=== PATIENT | male | born 1955 | race Caucasian/White ===

== ENCOUNTER 2021-08-08 16:04 | Observation (INO) ==
[2021-08-08] MEDS ORDERED: Naloxone 0.4 MG/ML INJ IVP PRN (18:10)
[2021-08-08] MEDS ORDERED: Furosemide 40 MG/4 ML VIAL IVP ONE (18:10)
[2021-08-08 18:35] LABS: Hemoglobin 7.9 g/dL (12.9-16.9)
[2021-08-08] MEDS ORDERED: 0.9 % Sodium Chloride 250 ML ONE (19:27)
[2021-08-09] MEDS: Morphine Sulfate ER (12 HR) 30 MG TABLET.ER PO PRN ×2 (01:49→10:10)
[2021-08-09 05:53] LABS: Hematocrit 27.6 % (37.5-50.1); Hemoglobin 8.3 g/dL (12.9-16.9)
[2021-08-09 06:55] VITALS: BP 127/74; PULSE 74; TEMP 97.6; O2SAT 94
[2021-08-09] MEDS ORDERED: Morphine Sulfate ER (12 HR) 30 MG TABLET.ER PO SCH (08:00)
[2021-08-09 10:53] VITALS: RESP 15
== END 2021-08-09 12:30 ==
LOC: INPGRE 16:04 → EMEROOGRE 16:04 → INPGRE 18:06
PROVIDERS: ADMIT Internal Medicine; ATTEND Internal Medicine